=== PATIENT | male | born 1955 | race African-American/Black ===

== ENCOUNTER 2018-03-07 15:17 | Inpatient (IN) | payer MEDICAID ==
[~2018-03-07] VITALS: Ht 162.6 cm; Wt 55.3 kg
[2018-03-07 15:32] VITALS: BP 122/77
--- NOTE | 2018-03-07 15:44 | NUR ---
PATIENT AMBULATED WITH ASSISTANCE TO BED 6.
[2018-03-07] MEDS ORDERED: ONDANSETRON 4 MG/2 ML VIAL IVP ONE ×2 (16:00)
[2018-03-07] MEDS ORDERED: NACL 0.9% 1,000 ML IV ONE (16:00)
[2018-03-07] MEDS ORDERED: LOPERAMIDE 2 MG CAP PO ONE (16:00)
[2018-03-07] MEDS ORDERED: NACL 0.9% 1,000 ML IV SCH (16:00)
[2018-03-07] MEDS ORDERED: FAMOTIDINE 20 MG/2 ML VIAL IVP ONE (16:00)
--- NOTE | 2018-03-07 16:00 | NUR ---
PT PRESENT TO ED DUE TO ABD PAIN W/ N/V AND DIARHEA X TODAY; DENIES BLOOD IN THE STOOL; PER GRANDAUGHTER PT IS CONFUSED; UPON ASSESSMENT IN ER PT IS AAOX 3; PT MUMBLING WORDS NOT UNDERSTABLE AND PRAYING; SAFETY PRECAUTION INSTITUTED;ALL MONITORS IN PLACED;ERMD MADE AWARE OF PT'S CONDITION;GRANDAUGHTER AT BEDSIDE.
[2018-03-07 16:34] LABS: BASOPHILS % (AUTO) 0.3 % (0.0-2.0); EOSINOPHILS # (AUTO) 0.1 K/uL (0-0.4); EOSINOPHILS % (AUTO) 1.1 % (0.0-4.0); HEMATOCRIT 47.2 % (36-52); HEMOGLOBIN 15.8 g/dL (12.0-18.0); LYMPHOCYTES # (AUTO) 0.7 K/uL (2.0-11.5); LYMPHOCYTES % (AUTO) 7.9 % (20.5-51.1); MEAN CORPUSCULAR HEMOGLOBIN 34 pg (27-31); MEAN CORPUSCULAR HGB CONC 33 g/dL (33-37); MEAN CORPUSCULAR VOLUME 102.7 fL (80-94); MONOCYTES # (AUTO) 0.4 K/uL (0.8-1.0); MONOCYTES % (AUTO) 4.4 % (1.7-9.3); NEUTROPHILS # (AUTO) 7.6 K/uL (1.8-7.7); NEUTROPHILS % (AUTO) 86.3 % (42.2-75.2); PLATELET COUNT (AUTO) 206 K/uL (140-450); RED BLOOD CELL COUNT(AUTO) 4.59 MIL/uL (4.20-6.10); RED CELL DISTRIBUTION WIDTH 12.8 % (11.6-13.7); WHITE BLOOD COUNT (AUTO) 8.8 K/uL (4.8-10.8)
[2018-03-07 16:53] LABS: CARBON DIOXIDE 25.7 mmol/L (21-32); CHLORIDE 103 mmol/L (98-107); CREATININE 1.2 mg/dL (0.7-1.3); GFR ARICAN-AMERICAN 79 mL/min (>90); GLUCOSE 166 mg/dL (74-106); POTASSIUM 4.7 mmol/L (3.5-5.1); SODIUM SERUM 140 mmol/L (136-145); UREA NITROGEN, BLOOD 13 mg/dL (7-18)
[2018-03-07 16:59] LABS: ALBUMIN 4.4 g/dL (3.4-5.0); AMYLASE 98 U/L (25-115); ASPARTATE AMINOTRANSFERASE 35 U/L (15-37); LIPASE 178 U/L (73-393); TOTAL BILIRUBIN 2.7 mg/dL (0.0-1.0)
[2018-03-07 17:03] LABS: SALICYLATE < 2.8 mg/dL (2.8-20.0)
[2018-03-07 17:08] LABS: PROTHROMBIN TIME 8.7 secs (10.8-13.4)
[2018-03-07 17:53] LABS: APPEARANCE,URINE SLIGHTLY CLOUDY (CLEAR); COLOR,URINE YELLOW (YELLOW)
[2018-03-07 17:54] LABS: BILIRUBIN,URINE NEGATIVE (NEGATIVE); BLOOD, URINE NEGATIVE (NEGATIVE); UGLUCOSE NEGATIVE (NEGATIVE)
[2018-03-07 17:55] LABS: LEUKOCYTE ESTERASE ,URINE NEGATIVE (NEGATIVE); NITRITE, URINE NEGATIVE (NEGATIVE)
--- NOTE | 2018-03-07 18:03 | NUR ---
PT STATES "I'M FEELING BETTER" VERBALIZES DECREASE PAIN FROM 10/10 TO 6/10; NO FACIAL GRIMMACING/MOANING NOTED;
[2018-03-07] MEDS: NACL 0.9% 1,000 ML IV SCH (18:06)
[2018-03-07] MEDS ORDERED: LORazepam 2 MG/ML VIAL IM/IVP PRN (18:10)
[2018-03-07] MEDS ORDERED: ACETAMINOPHEN 325 MG TAB PO PRN (18:10)
[2018-03-07] MEDS ORDERED: ONDANSETRON 4 MG/2 ML VIAL IM/IVP PRN (18:10)
[2018-03-07] MEDS ORDERED: NITROGLYCERIN 0.4 MG TAB SL PRN (18:10)
[2018-03-07] MEDS ORDERED: DOCUSATE SODIUM 100 MG GELCAP PO PRN (18:10)
[2018-03-07] MEDS ORDERED: ZOLPIDEM 5 MG TAB PO PRN (18:10)
[2018-03-07 18:19] LABS: BARBITURATE, URINE NEGATIVE ng/ml (NEG <=200); BENZODIAZEPINE, URINE NEGATIVE ng/mL (NEG <=200); COCAINE, URINE NEGATIVE ng/mL (NEG <=300); OPIATE, URINE NEGATIVE ng/mL (NEG <=2000); PHENCYCLIDINE SCREEN,URINE NEGATIVE ng/mL (NEG <=25)
[2018-03-07] MEDS ORDERED: MECLIZINE 25 MG TAB PO PRN (18:20)
[2018-03-07] MEDS ORDERED: HEPARIN PER PHARMACY MC PRN (18:20)
[2018-03-07 18:23] LABS: CANNABINOID, URINE POSITIVE ng/mL (NEG <=50)
[2018-03-07] MEDS ORDERED: ALBUTEROL SULFATE/IPRATROPIU 3 ML SOL IH PRN (18:35)
[2018-03-07 18:50] VITALS: BP 126/73
--- NOTE | 2018-03-07 18:50 | NUR ---
RECEIVED PT TRANSFERRED FROM ER, REPORT OBTAINED AT BEDSIDE, PT IS AAOX2, CONFUSED, NUMBING WORDS, FOLLOW COMMANDS SOMETIMES. VSS, C/O PAIN TO ABDOMEN 10/10. NO S/S OF DISTRESS, CLEAR LUNG SOUND CHASE, ON RA. DENIES CHEST PAIN, SR ON ANIMATION ARTIST, SOFT ABDOMEN WITH ACTIVE BOWEL SOUNDS, CONTINENT WITH B&B'S, SLIGHT WEAKNESS TO BLE. SKIN IS INTACT, WARM AND DRY TO TOUCH, IV SITE TO LAC, 20GA, RUNNING NS AT 100ML/HR. ORIENTED PT TO ICU ROOM, PT CONFUSED, HOB ELEVATED, SAFETY MEASURE IN PLACE, CALL LIGHT WITHIN REACH, WILL CONTINUE TO MONITOR.
--- NOTE | 2018-03-07 18:55 | NUR ---
Patient will be admitted to care of DR JUAREZ. Admited to ICU. Will go to BED 5. Belongings list completed. Report to BENJA MOJICA.
[2018-03-07 18:59] LABS: CKMB RELATIVE INDEX 1.9 (0.0-2.5); CREATINE KINASE MB 9.4 ng/mL (0-3.6)
[2018-03-07] MEDS ORDERED: hePARIN / DEXT 5% PREMIX 250 ML IV SCH (19:10)
--- NOTE | 2018-03-07 19:28 | NUR ---
REPORT GIVEN TO BIOSTATISTICS MANAGER NURSE FOR CONTINUE OF CARE.
--- NOTE | 2018-03-07 19:30 | NUR ---
RECEIVED REPORT FROM DAY NURSE NO ACUTE DISTRESS NOTED.
--- NOTE | 2018-03-07 19:35 | NUR ---
PT AWAKE MUMBLING WORDS TO HIMSELF @ TIMES, PT ABLE TO COMMUNICATE, BUT HAS PERIODS OF CONFUSION. PT AOX1, ABLE TO MOVE ALL EXTREMITIES. DENIES NUMBNESS TINGLING. S1 S2 HEARD, +2 PULSES RADIAL/PEDAL, <3 SEC CAP REFILL, DENIES CP/SOB. ACTIVE BOWEL SOUNDS, LAST BM 03/07/18, PT C/O ABD PAIN THROUHGOUT ENTIRE ABDOMEN. PT VOIDING IN URINAL, CLEAR YELLOW URINE. PERIPHERAL IV TO L AC. SKIN INTACT. NO OTHER S/S OF ACUTE DISTRESS NOTED. WILL CONTINUE TO OBSERVE.
[2018-03-07 20:00] VITALS: BP 118/68
[2018-03-07 20:05] LABS: MAGNESIUM 1.9 mg/dL (1.8-2.4); PHOSPHORUS 1.7 mg/dL (2.5-4.9); THYROID STIMULATING HORMONE 1.25 uIU/mL (0.34-3.74)
[2018-03-07 20:09] LABS: ACETAMINOPHEN < 0.5 ug/ml (10-30)
[2018-03-07] MEDS: METOPROLOL 25 MG TAB PO SCH (20:26)
[2018-03-07] MEDS: ATORVASTATIN 20 MG TAB PO SCH (20:26)
[2018-03-07] MEDS: MORPHINE SULFATE 2 MG/ML SYR IVP PRN (20:26)
[2018-03-07] MEDS: metroNIDAZOLE 500 MG/NS PREMIX 100 ML IV SCH (20:27)
[2018-03-07 22:00] VITALS: BP 108/62
--- NOTE | 2018-03-07 22:10 | NUR ---
PT HAS EYES CLOSED, AROUSABLE. PT DENIES PAIN @ THIS TIME. 124/78 78 HR , 100 RA SPO2, RR 15. NO ACUTE DISTRESS WILL CONTINUE TO OBSERVE
[2018-03-07] MEDS: HYDROcodone/APAP 5/325 MG 1 TAB TAB PO PRN (22:19)
[2018-03-08] VITALS (9 sets, daily range): BP systolic 98–117; BP diastolic 58–73
[2018-03-08] MEDS ORDERED: ALUMINUM HYD/MAG/SIMETHICONE 30 ML UDC PO SCH (02:00)
--- NOTE | 2018-03-08 02:00 | NUR ---
PT GIVEN MoM FOR ABD DISCOMFORT, NO FEVER/CHILLS NOTED, VSS, WILL CONTINUE TO OBSERVE.
--- NOTE | 2018-03-08 04:06 | NUR ---
HEPARIN DRIP TITRATED DOWN AND RESTARTED PER HOSPITAL PROTOCOL NO ACUTE BLEEDING NOTED. VSS, NO ACUTE DISTRESS NOTED. WILL CONTINUE TO OBSERVE.
[2018-03-08] MEDS: metroNIDAZOLE 500 MG/NS PREMIX 100 ML IV SCH ×3 (04:33→21:02)
[2018-03-08] MEDS: NACL 0.9% 1,000 ML IV SCH ×2 (04:33→15:03)
[2018-03-08] MEDS: PANTOPRAZOLE 40 MG TABEC PO SCH (05:40)
[2018-03-08 05:58] LABS: BASOPHILS % (AUTO) 0.5 % (0.0-2.0); EOSINOPHILS % (AUTO) 0.5 % (0.0-4.0); HEMATOCRIT 40.5 % (36-52); HEMOGLOBIN 13.3 g/dL (12.0-18.0); LYMPHOCYTES # (AUTO) 0.5 K/uL (2.0-11.5); LYMPHOCYTES % (AUTO) 10.7 % (20.5-51.1); MEAN CORPUSCULAR HEMOGLOBIN 34 pg (27-31); MEAN CORPUSCULAR HGB CONC 33 g/dL (33-37); MONOCYTES # (AUTO) 0.2 K/uL (0.8-1.0); MONOCYTES % (AUTO) 5.2 % (1.7-9.3); NEUTROPHILS # (AUTO) 3.9 K/uL (1.8-7.7); NEUTROPHILS % (AUTO) 83.1 % (42.2-75.2); PLATELET COUNT (AUTO) 160 K/uL (140-450); RED BLOOD CELL COUNT(AUTO) 3.89 MIL/uL (4.20-6.10); RED CELL DISTRIBUTION WIDTH 13.3 % (11.6-13.7); WHITE BLOOD COUNT (AUTO) 4.7 K/uL (4.8-10.8)
[2018-03-08] MEDS ORDERED: ALBUTEROL SULFATE/IPRATROPIU 3 ML SOL IH SCH (06:00)
[2018-03-08 06:17] LABS: MAGNESIUM 1.7 mg/dL (1.8-2.4); PHOSPHORUS 3.4 mg/dL (2.5-4.9)
--- NOTE | 2018-03-08 07:30 | NUR ---
RECEIVED REPORT FROM NOTCH GRINDER RN. PT IS AWAKE, AAOX3, ABLE TO FOLLOW COMMANDS AND MAKE NEEDS KNOWN. SINUS BRADYCARDIA ON MONITOR, + S1 S2 HEARD. PT IS ON ROOM AIR, NO SOB OR RESPIRATORY NOTED. BREATHING EVEN AND UNLABORED. NO C/O CHEST PAIN. PERIPHERAL IVS G20 TO LEFT ANTECUBITAL AND G18 TO RIGHT FOREARM ASYMPTOMATIC, PATENT AND INTACT. PT IS RECEIVING IV FLUID NORMAL SALINE AT 100 ML/HR AND HEPARIN DRIP AT 630 U/HR. ABDOMEN SOFT, NONTENDER, WITH ACTIVE BOWEL SOUNDS. C/O MILD ABD PAIN. ABLE TO MOVE ALL EXTREMITIES, W/ PALPABLE PULSES. SKIN IS DRY AND WARM. PT IS AFEBRILE. BED IN LOWEST POSITION AND CALL LIGHT WITHIN REACH. WILL CONTINUE TO MONITOR.
[2018-03-08 07:34] LABS: ANION GAP 12.9 (8-16); CARBON DIOXIDE 26.1 mmol/L (21-32)
[2018-03-08 07:35] LABS: CREATININE 1.1 mg/dL (0.7-1.3)
--- NOTE | 2018-03-08 07:45 | NUR ---
DR. QIU AND RESIDENT GROUP IN TO SEE PT. WILL FOLLOW UP ON ORDERS.
--- NOTE | 2018-03-08 08:14 | NUR ---
BREAKFAST PROVIDED. PT ABLE TO EAT INDEPENDENTLY. NO S/SX OF DISTRESS OR DISCOMFORT AT THIS TIME.
[2018-03-08] MEDS: LEVOFLOXACIN 500 MG/D5W PREMIX 100 ML IV SCH (08:34)
[2018-03-08] MEDS: SODIUM PHOS / POTASSIUM PHOS 1 PKT PDR PO SCH (08:35)
[2018-03-08] MEDS: LACTOBACILLUS RHAMNOSUS GG 1 EACH CAP PO SCH (08:35)
[2018-03-08] MEDS: ASPIRIN 81 MG TAB.CHEW PO SCH (08:35)
[2018-03-08] MEDS: HYDROcodone/APAP 5/325 MG 1 TAB TAB PO PRN (08:35)
[2018-03-08] MEDS: METOPROLOL 25 MG TAB PO SCH ×2 (08:43→21:00)
[2018-03-08] MEDS: LISINOPRIL 5 MG TAB PO SCH (08:43)
--- NOTE | 2018-03-08 08:46 | NUR ---
MEDICATIONS ADMINISTERED ORDERED. PT TOLERATED WELL. BP WAS 99/52, HR 56, HELD BLOOD PRESSURE MEDICATIONS AND DR. ASHER MADE AWARE.
[2018-03-08] MEDS ORDERED: MAGNESIUM OXIDE 400 MG TAB PO SCH (09:00)
[2018-03-08] MEDS ORDERED: hePARIN / DEXT 5% PREMIX 250 ML IV SCH (10:15)
--- NOTE | 2018-03-08 10:48 | NUR ---
PT SEEN AND EXAMINED BY DR. MARISCAL. WILL FOLLOW UP WITH NEW ORDERS.
--- NOTE | 2018-03-08 10:59 | NUR ---
APTT 47.0. NO CHANGE FOR HEPARIN DRIP RATE PER PROTOCOL.
--- NOTE | 2018-03-08 11:12 | NUR ---
PATIENT HAS BEEN SCREENED AND CATEGORIZED MODERATE NUTRITION RISK. PATIENT WILL BE SEEN WITHIN 3-5 DAYS OF ADMISSION. 03/10/18 03/12/18 KIET SCHAEFER MBA, RD
[2018-03-08] MEDS ORDERED: PROBIOTIC SCREEN 1 EA MISC MC PRN (11:35)
--- NOTE | 2018-03-08 12:20 | NUR ---
PT HAD A SMALL AMOUNT OF BROWN LIQUID BOWEL MOVEMENT. NO C/O PAIN OR DISCOMFORT AT THIS TIME. VSS.
[2018-03-08] MEDS: ALBUTEROL SULFATE/IPRATROPIU 3 ML SOL IH SCH ×2 (13:09→19:42)
--- NOTE | 2018-03-08 14:30 | NUR ---
PT HAD ANOTHER AMOUNT OF BROWN LIQUID BOWEL MOVEMENT. NO C/O ABD PAIN. VSS. WILL CONTINUE TO MONITOR.
--- NOTE | 2018-03-08 15:55 | NUR ---
PT TRANSFERRED TO TELEMETRY ROOM 107A. REPORT GIVEN TO BENJA ARRINGTON AT BEDSIDE. PT IS IN STABLE CONDITION. NO ACUTE DISTRESS NOTED UPON TRANSFER.
--- NOTE | 2018-03-08 16:00 | NUR ---
PT ARRIVED VIA HOSPITAL BED FROM ICU. BEDSIDE REPORT RECEIVED FROM MONSE ICU NURSE. PT ABLE TO AMB FROM BED TO BED WITH STEADY GAIT. RIGHT FA IV INTACT WITH ONGOING HEPARIN DRIP @ 630 UNITS/HR. LEFT AC IV INTACT WITH ONGOING NS @ 100ML/HR. PT AAOx4, VERBALLY RESPONSIVE. PT ORIENTED TO ROOM & UNIT, VERBALIZED UNDERSTANDING. C/O 9/10 ABD PAIN, BOWEL SOUNDS ACTIVE ON ALL QUADS. WILL ADMINISTER MORPHINE.
[2018-03-08] MEDS: MORPHINE SULFATE 2 MG/ML SYR IVP PRN ×2 (16:29→21:05)
--- NOTE | 2018-03-08 16:30 | NUR ---
PTT RESULT 47.0, NOTED 2 CONSECUTIVE THERAPEUTIC LEVEL. CONTINUE WITH CURRENT HEPARIN DRIP @ 630 UNIT/HR PER PROTOCOL. REPEAT PTT DRAW ORDERED FOR 03/09/18 @ 1550.
--- NOTE | 2018-03-08 17:54 | NUR ---
PT IN HIGH FOWLERS IN BED, EATING DINNER. NO C/O DISCOMFORT AT THIS TIME. RESPIRATIONS EVEN & NONLABORED. RIGHT FOREARM IV INTACT WITH ONGOING HEPARIN DRIP @ 630 UNIT/HR. LEFT AC IV INTACT WITH ONGOING IVF NS @ 100ML/HR. CALL LIGHT WITHIN REACH.
--- NOTE | 2018-03-08 19:25 | NUR ---
BEDSIDE REPORT GIVEN TO PM NURSE JAYSON. PT LYING IN BED, AWAKE, VERBALLY RESPONSIVE, FLACC 0. CALL LIGHT WITHIN REACH.
--- NOTE | 2018-03-08 19:26 | NUR ---
RECEIVED REPORT FROM DAY SHIFT RN MURPHY FOR CONTINUITY OF CARE. PT IS A/OX4, ON ROOM AIR. PT AMBULATES WITH STEADY GAIT, AND SKIN IS PINK/WARM/DRY AND INTACT. PT IS ABLE TO MAKE NEEDS KNOWN, AND ABLE TO FOLLOW COMMANDS. LUNGS SOUNDS CLEAR, HR EVEN AND REGULAR. PT HAS 18G IV TO RIGHT FOREARM INFUSING HEPARIN DRIP, AND 2OG IV TO LEFT AC INFUSING NS, ASYMPTOMATIC AND INTACT. PT DENIES ANY PAIN AT THIS TIME. VITAL SIGNS STABLE. NO SIGNS OF DISTRESS NOTED. PT POSITIONED FOR COMFORT. BED RAILS UP X2, BED IN LOWEST POSITION. CALL LIGHT WITHIN REACH. WILL CONTINUE TO MONITOR.
[2018-03-08] MEDS: ATORVASTATIN 20 MG TAB PO SCH (21:03)
--- NOTE | 2018-03-08 21:07 | NUR ---
ADMINISTERED SCHEDULED MEDICATIONS EXCEPT LOPRESSOR BECAUSE OF DECREASED PULSE, 52, PT VERBALIZED UNDERSTANDING OF MEDICATIONS BEING GIVEN AND HELD. ALSO ADMINISTERED MORPHINE FOR 9/10 ABDOMINAL PAIN. PT TOLERATED WELL.
[2018-03-09] VITALS: BP 111/61
--- NOTE | 2018-03-09 | NUR ---
PT DENIES ANY PAIN AT THIS TIME. VITAL SIGNS STABLE. NO SIGNS OF DISTRESS NOTED. PT POSITIONED FOR COMFORT. BED RAILS UP X2, BED IN LOWEST POSITION. CALL LIGHT WITHIN REACH. WILL CONTINUE TO MONITOR.
[2018-03-09] MEDS: NACL 0.9% 1,000 ML IV SCH ×2 (01:55→12:11)
[2018-03-09] MEDS ORDERED: KETOROLAC 30 MG/ML VIAL IVP ONE (03:55)
[2018-03-09] MEDS ORDERED: ALUMINUM HYD/MAG/SIMETHICONE 30 ML UDC PO ONE (03:55)
[2018-03-09 04:00] VITALS: BP 108/65
--- NOTE | 2018-03-09 04:00 | NUR ---
PT C/O 10 ABDOMINAL PAIN. VITAL SIGNS STABLE EXCEPT FOR LOW PULSE, 46. SPOKE TO DR CARRASCO ABOUT PAIN AND HEART RATE BECAUSE PT HAS MORPHINE ORDERED FOR 01/14 PAIN. SAID SHE WOULD ORDER TORADOL AND MAALOX FOR PT. NO SIGNS OF DISTRESS NOTED. PT POSITIONED FOR COMFORT. BED RAILS UP X2, BED IN LOWEST POSITION. CALL LIGHT WITHIN REACH. WILL CONTINUE TO MONITOR.
[2018-03-09] MEDS: metroNIDAZOLE 500 MG/NS PREMIX 100 ML IV SCH ×3 (04:41→20:21)
--- NOTE | 2018-03-09 04:43 | NUR ---
ADMINISTERED SCHEDULED MEDICATIONS. PT VERBALIZED UNDERSTANDING OF MEDICATIONS BEING GIVEN. ALSO ADMINISTERED MAALOX AND TORADOL FOR 10/10 ABDOMINAL PAIN. PT TOLERATED WELL.
[2018-03-09] MEDS ORDERED: INFLUENZA VIRUS VACCINE QUAD 0.5 ML SYR IMVAC PRN (06:25)
[2018-03-09] MEDS: PANTOPRAZOLE 40 MG TABEC PO SCH (06:33)
--- NOTE | 2018-03-09 07:05 | NUR ---
ENDORSED PT TO DAY SHIFT RN VANESA FOR CONTINUITY OF CARE. PT IN STABLE CONDITION.
[2018-03-09] MEDS: ALBUTEROL SULFATE/IPRATROPIU 3 ML SOL IH SCH ×3 (07:18→19:20)
[2018-03-09 07:27] LABS: BASOPHILS % (AUTO) 0.5 % (0.0-2.0); EOSINOPHILS # (AUTO) 0.1 K/uL (0-0.4); EOSINOPHILS % (AUTO) 3.3 % (0.0-4.0); HEMATOCRIT 38.3 % (36-52); HEMOGLOBIN 12.8 g/dL (12.0-18.0); LYMPHOCYTES % (AUTO) 34.7 % (20.5-51.1); MEAN CORPUSCULAR HEMOGLOBIN 35 pg (27-31); MEAN CORPUSCULAR HGB CONC 33 g/dL (33-37); MEAN CORPUSCULAR VOLUME 103.3 fL (80-94); MONOCYTES # (AUTO) 0.3 K/uL (0.8-1.0); MONOCYTES % (AUTO) 11.7 % (1.7-9.3); NEUTROPHILS # (AUTO) 1.4 K/uL (1.8-7.7); NEUTROPHILS % (AUTO) 49.8 % (42.2-75.2); PLATELET COUNT (AUTO) 137 K/uL (140-450); RED BLOOD CELL COUNT(AUTO) 3.71 MIL/uL (4.20-6.10); RED CELL DISTRIBUTION WIDTH 13.2 % (11.6-13.7); WHITE BLOOD COUNT (AUTO) 2.8 K/uL (4.8-10.8)
--- NOTE | 2018-03-09 07:30 | NUR ---
PATIENT WAS AWAKE, ALERT. RESPIRATION EVEN, UNLABOR ON ROOM AIR. SKIN DRY AND WARM. IV PATENT AND INTACT. COMPLAINED OF SHARP CHEST PAIN AND ABDOMINAL PAIN 10/10, DIZZINESS, AND NAUSEA, WILL MEDICATE PER ORDER. VS IS STABLE. PLAN OF CARE WAS DISCUSSED WITH PATIENT. BED AT LOW POSITION, SIDE RAILS UP. CALL LIGHT WITHIN REACH. RT WAS AT BEDSIDE
[2018-03-09 07:55] LABS: ANION GAP 11.7 (8-16); CARBON DIOXIDE 25.1 mmol/L (21-32); POTASSIUM 3.8 mmol/L (3.5-5.1); TOTAL BILIRUBIN 1.4 mg/dL (0.0-1.0)
[2018-03-09 07:56] LABS: MAGNESIUM 1.9 mg/dL (1.8-2.4)
[2018-03-09 08:00] VITALS: BP 124/68
[2018-03-09] MEDS: SODIUM PHOS / POTASSIUM PHOS 1 PKT PDR PO SCH (08:19)
[2018-03-09] MEDS: LEVOFLOXACIN 500 MG/D5W PREMIX 100 ML IV SCH (08:19)
[2018-03-09] MEDS: MORPHINE SULFATE 2 MG/ML SYR IVP PRN ×3 (08:20→20:21)
[2018-03-09] MEDS: LISINOPRIL 5 MG TAB PO SCH (08:20)
[2018-03-09] MEDS: LACTOBACILLUS RHAMNOSUS GG 1 EACH CAP PO SCH (08:20)
[2018-03-09] MEDS: ASPIRIN 81 MG TAB.CHEW PO SCH (08:20)
--- NOTE | 2018-03-09 08:26 | NUR ---
DUE TO RECEIVING A FNS REFERRAL, PATIENT HAS BEEN CATEGORIZED HIGH RISK. PATIENT WILL BE SEEN WITHIN 1-2 DAYS FROM RECEIVING REFERRAL. 03/09/[address]
--- NOTE | 2018-03-09 08:30 | NUR ---
DR. PRARA WAS PAGED FOR CRITICAL RESULT TROPONIN , WILL CONTINUE TO FOLLOW UP
[2018-03-09] MEDS: METOPROLOL 25 MG TAB PO SCH (09:00)
--- NOTE | 2018-03-09 09:56 | NUR ---
DR. TAVERA WAS MADE AWARE OF TROPONIN LEVEL 0.337, AND PATIENT HAS BEEN SINUS REGLA ON MONITOR WITH COMPLAINT OF DIZZINESS. PHYSICIAN WILL SEE PATIENT
--- NOTE | 2018-03-09 10:00 | NUR ---
PATIENT WAS AWAKE, ALERT. RESPIRATION EVEN, UNLABOR ON ROOM AIR. DENIED CP. COMPLAINED OF DIZZINESS AND ABDOMINAL PAIN 09/14. DR. TAVERA WAS AT BEDSIDE.
[2018-03-09] MEDS ORDERED: KETOROLAC 30 MG/ML VIAL IVP SCH (10:10)
[2018-03-09 12:00] VITALS: BP 126/67
--- NOTE | 2018-03-09 12:00 | NUR ---
PATIENT WAS AWAKE, ALERT. RESPIRATION EVEN, UNLABOR ON ROOM AIR. VS IS STABLE. DENIED SOB, CP AT THIS TIME. NO DISTRESS NOTED. BREWERY WORKER IS AT BEDSIDE. CALL LIGHT WITHIN REACH
--- NOTE | 2018-03-09 14:10 | NUR ---
PATIENT WAS AWAKE, ALERT. RESPIRATION EVEN, UNLABOR ON ROOM AIR. COMPLAINED OF ABDOMINAL PAIN 9/, WILL MEDICATE PER ORDER.
--- NOTE | 2018-03-09 14:13 | NUR ---
03/09/18 RD INITIAL ASSESSMENT COMPLETED PLEASE REFER TO NUTRITION ASSESSMENT UNDER CARE ACTIVITY FOR ESTIMATED NUTRITIONAL NEEDS. 1. CONTINUE CLEAR LIQUID DIET TOLERATED 2. ADVANCE TO FULL LIQUID DIET ONCE APPLICABLE 3. RECOMMEND ENSURE CLEAR TID 3. RD TO FOLLOW-UP 3-5 DAYS, MODERATE RISK DON HAILE, RD
[2018-03-09 16:00] VITALS: BP 139/80
--- NOTE | 2018-03-09 16:00 | NUR ---
PATIENT WAS AWAKE, ALERT. RESPIRATION EVEN, UNLABOR ON ROOM AIR. DENIED CP, N/V AT, STATED ABDOMINAL PAIN IS REDUCING, AND IS TOLERABLE. IV PATENT AND INTACT. NO DISTRESS NOTED AT THIS TIME. CALL LIGHT WITHIN REACH
--- NOTE | 2018-03-09 18:22 | NUR ---
PATIENT WAS AWAKE, ALERT. RESPIRATION EVEN, UNLABOR ON ROOM AIR. PATIENT WAS ASSISTED TO THE BATHROOM, AMBULATORY WITH STEADY GAIT. NO DISTRESS NOTED. IV PATENT AND INTACT.
--- NOTE | 2018-03-09 19:18 | NUR ---
ENDORSEMENT GIVEN TO BONE CHAR OPERATOR NURSE. PATIENT IS STABLE AT THIS TIME
--- NOTE | 2018-03-09 19:18 | NUR ---
RECEIVED REPORT FROM DAY SHIFT NURSE, REJI, AT PT BEDSIDE. PT IN STABLE CONDITION. PT IS AAOX4, RESTING COMFORTABLY IN BED. PT IS ON RA WITH RESPIRATIONS EVEN AND UNLABORED. IV ACCESS IN L AC 20G, SALINE LOCKED AND R FA 18G WITH IVF RUNNING PER MD ORDERS. IVS ARE PATENT AND INTACT. PT SKIN IS INTACT. NO C/O PAIN AT THIS TIME. BED IS LOCKED, LOW POSITION WITH SIDE RAILS UP X2. CALL LIGHT IS WITHIN REACH. BOARD UPDATED. WILL CONTINUE TO MONITOR PT.
[2018-03-09 20:00] VITALS: BP 111/60
[2018-03-09] MEDS: ATORVASTATIN 20 MG TAB PO SCH (20:21)
--- NOTE | 2018-03-09 20:21 | NUR ---
ADMINISTERED SCHEDULED MEDICATIONS. PT C/O PAIN, MORPHINE GIVEN. PT TOLERATED WELL. NO S/SX OF DISTRESS. WILL CONTINUE TO MONITOR.
--- NOTE | 2018-03-09 22:34 | NUR ---
PT RESTING COMFORTABLY IN BED. NO S/SX OF DISTRESS. WILL CONTINUE TO MONITOR.
[2018-03-10] VITALS: BP 113/72
--- NOTE | 2018-03-10 00:55 | NUR ---
PT ASLEEP IN BED. NO S/SX OF DISTRESS. WILL CONTINUE TO MONITOR.
--- NOTE | 2018-03-10 01:17 | NUR ---
CREDIT UNION MANAGER AT BEDSIDE DRAWING LABS.
--- NOTE | 2018-03-10 03:30 | NUR ---
PT ASLEEP IN BED WITH NO S/SX OF DISTRESS. WILL CONTINUE TO MONITOR.
[2018-03-10 04:00] VITALS: BP 112/62
--- NOTE | 2018-03-10 04:50 | NUR ---
STOOL SAMPLE COLLECTED AND SENT TO LAB.
[2018-03-10] MEDS: metroNIDAZOLE 500 MG/NS PREMIX 100 ML IV SCH ×2 (05:36→12:32)
[2018-03-10] MEDS: NACL 0.9% 1,000 ML IV SCH ×2 (05:36→22:13)
[2018-03-10] MEDS: PANTOPRAZOLE 40 MG TABEC PO SCH (05:37)
--- NOTE | 2018-03-10 05:37 | NUR ---
ADMINISTERED SCHEDULED MEDICATIONS AND NEW BAG OF IVF STARTED. ALL PT NEEDS ARE MET AT THIS TIME. WILL CONTINUE TO MONITOR.
[2018-03-10 05:58] LABS: BASOPHILS % (AUTO) 0.5 % (0.0-2.0); EOSINOPHILS # (AUTO) 0.1 K/uL (0-0.4); HEMATOCRIT 36.2 % (36-52); LYMPHOCYTES % (AUTO) 35.8 % (20.5-51.1); MEAN CORPUSCULAR HEMOGLOBIN 34 pg (27-31); MEAN CORPUSCULAR HGB CONC 33 g/dL (33-37); MEAN CORPUSCULAR VOLUME 102.8 fL (80-94); MONOCYTES # (AUTO) 0.3 K/uL (0.8-1.0); MONOCYTES % (AUTO) 12.3 % (1.7-9.3); NEUTROPHILS # (AUTO) 1.3 K/uL (1.8-7.7); NEUTROPHILS % (AUTO) 47.4 % (42.2-75.2); PLATELET COUNT (AUTO) 147 K/uL (140-450); RED BLOOD CELL COUNT(AUTO) 3.52 MIL/uL (4.20-6.10); RED CELL DISTRIBUTION WIDTH 12.8 % (11.6-13.7); WHITE BLOOD COUNT (AUTO) 2.7 K/uL (4.8-10.8)
[2018-03-10] MEDS: ALBUTEROL SULFATE/IPRATROPIU 3 ML SOL IH SCH ×3 (06:26→18:38)
--- NOTE | 2018-03-10 06:26 | NUR ---
PT SLEEPING WITH NO SIGNS OF DISTRESS NOTED AT THIS TIME NO HHN GIVEN
[2018-03-10 06:40] LABS: CARBON DIOXIDE 24.6 mmol/L (21-32); CREATININE 0.9 mg/dL (0.7-1.3); MAGNESIUM 1.8 mg/dL (1.8-2.4); PHOSPHORUS 2.8 mg/dL (2.5-4.9); POTASSIUM 3.6 mmol/L (3.5-5.1)
--- NOTE | 2018-03-10 07:10 | NUR ---
ENDORSED PT TO DAY SHIFT NURSE FOR CONTINUITY OF CARE. PT IN STABLE CONDITION.
--- NOTE | 2018-03-10 07:40 | NUR ---
PATIENT WAS AWAKE, ALERT. RESPIRATION EVEN, UNLABOR ON ROOM AIR. SKIN DRY AND WARM. IV PATENT AND INTACT. DENIED PAIN, N/V, DIZZINESS AT THIS TIME. PATIENT WAS ENCOURAGED TO REPOSITION SLOWLY. PLAN OF CARE WAS DISCUSSED WITH PATIENT. BED AT LOW POSITION, SIDE RAILS UP. CALL LIGHT WITHIN REACH
[2018-03-10 08:00] VITALS: BP 113/73
[2018-03-10] MEDS: ASPIRIN 81 MG TAB.CHEW PO SCH (08:32)
[2018-03-10] MEDS: SODIUM PHOS / POTASSIUM PHOS 1 PKT PDR PO SCH (08:32)
[2018-03-10] MEDS: LISINOPRIL 5 MG TAB PO SCH (08:32)
[2018-03-10] MEDS: LACTOBACILLUS RHAMNOSUS GG 1 EACH CAP PO SCH (08:32)
[2018-03-10] MEDS: LEVOFLOXACIN 500 MG/D5W PREMIX 100 ML IV SCH (08:32)
--- NOTE | 2018-03-10 10:15 | NUR ---
PATIENT WAS AWAKE, ALERT. RESPIRATION EVEN, UNLABOR ON ROOM AIR. NO DISTRESS NOTED AT THIS TIME
--- NOTE | 2018-03-10 11:53 | NUR ---
PATIENT WAS AWAKE, ALERT. RESPIRATION EVEN, UNLABOR ON ROOM AIR. DENIED PAIN, SOB AT THIS TIME. IV PATENT AND INTACT. PATIENT AMBULATED TO THE BATHROOM, STEADY GAIT. NO DISTRESS NOTED. CALL LIGHT WITHIN REACH
[2018-03-10 12:00] VITALS: BP 128/72
--- NOTE | 2018-03-10 13:55 | NUR ---
PATIENT WAS SLEEPING COMFORTABLY. RESPIRATION EVEN, UNLABOR ON ROOM AIR. NO DISTRESS NOTED AT THIS TIME
[2018-03-10 16:00] VITALS: BP 121/65
--- NOTE | 2018-03-10 16:10 | NUR ---
PATIENT WAS AWAKE, ALERT. RESPIRATION EVEN, UNLABOR ON ROOM AIR. DENIED PAIN, N/V, STATED HE TOLERATED REGULAR DIET WELL. IV PATENT AND INTACT. NO DISTRESS NOTED AT THIS TIME. CALL LIGHT WITHIN REACH
--- NOTE | 2018-03-10 17:54 | NUR ---
PATIENT AWAKE, ALERT, EATING DINNER COMFORTABLY. RESPIRATION EVEN, UNLABOR ON ROOM AIR. IV PATENT AND INTACT, FLUSHING WELL. NO DISTRESS NOTED. DR. LAWLER WAS AT BEDSIDE. CALL LIGHT WITHIN REACH.
[2018-03-10 18:33] LABS: BASOPHILS % (AUTO) 0.4 % (0.0-2.0); EOSINOPHILS # (AUTO) 0.1 K/uL (0-0.4); EOSINOPHILS % (AUTO) 2.9 % (0.0-4.0); HEMATOCRIT 42.6 % (36-52); LYMPHOCYTES # (AUTO) 1.3 K/uL (2.0-11.5); LYMPHOCYTES % (AUTO) 35.1 % (20.5-51.1); MEAN CORPUSCULAR HEMOGLOBIN 34 pg (27-31); MEAN CORPUSCULAR HGB CONC 33 g/dL (33-37); MEAN CORPUSCULAR VOLUME 103.4 fL (80-94); MONOCYTES # (AUTO) 0.3 K/uL (0.8-1.0); MONOCYTES % (AUTO) 9.4 % (1.7-9.3); NEUTROPHILS % (AUTO) 52.2 % (42.2-75.2); PLATELET COUNT (AUTO) 172 K/uL (140-450); RED BLOOD CELL COUNT(AUTO) 4.12 MIL/uL (4.20-6.10); RED CELL DISTRIBUTION WIDTH 13.2 % (11.6-13.7); WHITE BLOOD COUNT (AUTO) 3.7 K/uL (4.8-10.8)
--- NOTE | 2018-03-10 19:22 | NUR ---
RECEIVED REPORT FROM DAY SHIFT NURSE, REJI, AT PT BEDSIDE. PT IN STABLE CONDITION. FAMILY IS AT BEDSIDE. PT IS AAOX4, RESTING COMFORTABLY IN BED. PT IS ON RA WITH RESPIRATIONS EVEN AND UNLABORED. IV ACCESS IN L AC 20G, SALINE LOCKED AND R FA 18G WITH IVF RUNNING PER MD ORDERS. IVS ARE PATENT AND INTACT. PT SKIN IS INTACT. NO C/O PAIN AT THIS TIME. BED IS LOCKED, LOW POSITION WITH SIDE RAILS UP X2. CALL LIGHT IS WITHIN REACH. BOARD UPDATED. WILL CONTINUE TO MONITOR PT.
--- NOTE | 2018-03-10 19:22 | NUR ---
ENDORSEMENT GIVEN TO STRATEGY MANAGER NURSE. PATIENT IS STABLE AT THIS TIME
[2018-03-10 20:00] VITALS: BP 119/69
[2018-03-10] MEDS: ATORVASTATIN 20 MG TAB PO SCH (21:14)
--- NOTE | 2018-03-10 21:14 | NUR ---
ADMINISTERED SCHEDULED MEDICATION. PT C/O HEADACHE. TYLENOL GIVEN. PT TOLERATED WELL. NO S/SX OF DISTRESS. WILL CONTINUE TO MONITOR.
--- NOTE | 2018-03-10 23:58 | NUR ---
PT RESTING COMFORTABLY IN BED. NO S/SX OF DISTRESS. WILL CONTINUE TO MONITOR PT.
[2018-03-11] VITALS: BP 102/72
--- NOTE | 2018-03-11 01:17 | NUR ---
PT IS ASLEEP I BED. NO S/SX OF DISTRESS. WILL CONTINUE TO MONITOR.
--- NOTE | 2018-03-11 03:07 | NUR ---
PT UP AT BEDSIDE USING URINAL. NO SIGNS OR SYMPTOMS OF DISTRESS. WILL CONTINUE TO MONITOR.
[2018-03-11] MEDS ORDERED: INFLUENZA VIRUS VACCINE QUAD 0.5 ML SYR IMVAC PRN (03:20)
[2018-03-11 04:00] VITALS: BP 111/64
--- NOTE | 2018-03-11 05:05 | NUR ---
PT IS ASLEEP IN BED. NO S/SX OF DISTRESS. WILL CONTINUE TO MONITOR.
[2018-03-11] MEDS: PANTOPRAZOLE 40 MG TABEC PO SCH (06:09)
--- NOTE | 2018-03-11 06:09 | NUR ---
ADMINISTERED SCHEDULED MEDICATION. PT TOLERATED WELL, RESTING COMFORTABLY IN BED. NO S/SX OF DISTRESS. WILL CONTINUE TO MONITOR.
[2018-03-11 06:41] LABS: BASOPHILS % (AUTO) 0.9 % (0.0-2.0); EOSINOPHILS # (AUTO) 0.2 K/uL (0-0.4); EOSINOPHILS % (AUTO) 4.6 % (0.0-4.0); HEMATOCRIT 37.8 % (36-52); HEMOGLOBIN 12.5 g/dL (12.0-18.0); LYMPHOCYTES # (AUTO) 1.2 K/uL (2.0-11.5); LYMPHOCYTES % (AUTO) 36.1 % (20.5-51.1); MEAN CORPUSCULAR HEMOGLOBIN 34 pg (27-31); MEAN CORPUSCULAR HGB CONC 33 g/dL (33-37); MONOCYTES # (AUTO) 0.4 K/uL (0.8-1.0); MONOCYTES % (AUTO) 10.6 % (1.7-9.3); NEUTROPHILS # (AUTO) 1.6 K/uL (1.8-7.7); NEUTROPHILS % (AUTO) 47.8 % (42.2-75.2); PLATELET COUNT (AUTO) 143 K/uL (140-450); RED BLOOD CELL COUNT(AUTO) 3.67 MIL/uL (4.20-6.10); RED CELL DISTRIBUTION WIDTH 13.1 % (11.6-13.7); WHITE BLOOD COUNT (AUTO) 3.3 K/uL (4.8-10.8)
[2018-03-11] MEDS: ALBUTEROL SULFATE/IPRATROPIU 3 ML SOL IH SCH ×2 (06:44→13:20)
[2018-03-11 07:06] LABS: ANION GAP 13.6 (8-16); CARBON DIOXIDE 25.4 mmol/L (21-32); CREATININE 0.9 mg/dL (0.7-1.3)
--- NOTE | 2018-03-11 07:07 | NUR ---
ENDORSED PT TO DAY SHIFT NURSE FOR CONTINUITY OF CARE. PT IN STABLE CONDITION.
--- NOTE | 2018-03-11 07:08 | NUR ---
RECEIVED REPORT FROM ASSOCIATE PROFESSOR OF MEDIA ARTS NURSE. PATIENT LYING DOWN IN BED SLEEPING, AROUSABLE BY VOICE. NO DISTRESS NOTED. DENIES ANY PAIN. AAOX4, CALM, COOPERATIVE, SKIN COLOR APPROPRIATE TO ETHNICITY, WARM TO TOUCH. SKIN INTACT. IV SITE INTACT, PATENT, AND INFUSING IVF PER MD ORDERS. LUNGS CTA ON ALL LOBES. REVIEWED PLAN OF CARE WITH PATIENT. PATIENT VERBALIZED UNDERSTANDING. SAFETY MEASURES IN PLACE, CALL LIGHT WITHIN REACH. WILL CONTINUE TO MONITOR.
[2018-03-11 08:00] VITALS: BP 111/69
[2018-03-11] MEDS: SODIUM PHOS / POTASSIUM PHOS 1 PKT PDR PO SCH (09:02)
[2018-03-11] MEDS: LACTOBACILLUS RHAMNOSUS GG 1 EACH CAP PO SCH (09:02)
[2018-03-11] MEDS: LISINOPRIL 5 MG TAB PO SCH (09:03)
[2018-03-11] MEDS: ASPIRIN 81 MG TAB.CHEW PO SCH (09:03)
--- NOTE | 2018-03-11 09:08 | NUR ---
PATIENT SITTING IN BED COMFORTABLY. NO DISTRESS NOTED. DENIES ANY PAIN. SCHEDULED MEDICATIONS DUE GIVEN. WILL CONTINUE TO MONITOR.
--- NOTE | 2018-03-11 11:45 | NUR ---
PATIENT SITTING IN BED WITH LUNCH TRAY IN FRONT. NO DISTRESS NOTED. DENIES ANY PAIN. WILL CONTINUE TO MONITOR.
[2018-03-11] MEDS ORDERED: PANT40EC28 PO (12:06)
[2018-03-11] MEDS ORDERED: LISI-424 PO (12:06)
[2018-03-11] MEDS ORDERED: ASPI81CT95 PO (12:06)
[2018-03-11] MEDS ORDERED: ATOR20TA40 PO (12:06)
[2018-03-11] MEDS: NACL 0.9% 1,000 ML IV SCH (12:13)
--- NOTE | 2018-03-11 13:30 | NUR ---
PATIENT SITTING IN BED RECEIVING A BREATHING TREATMENT. NO DISTRESS NOTED. WILL CONTINUE TO MONITOR.
[2018-03-11] MEDS ORDERED: PNEUMOCOCCAL VACCINE 23 MCG/0.5 ML VIAL IMVAC SCH (13:50)
--- NOTE | 2018-03-11 15:00 | NUR ---
DISCHARGE INSTRUCTIONS PROVIDED TO PATIENT IN PREFERRED LANGUAGE OF [place], FOLLOW-UP VISITS WITH PCP AND CASTING OPERATOR, NEW/CHANGED MEDICATION REGIMEN, AND DIET REGIMEN. ANSWERED ALL OF PATIENT'S QUESTIONS REGARDING DISCHARGE. PATIENT VERBALIZED COMPLETE UNDERSTANDING. IV SITE REMOVED WITH MINIMAL BLOOD AND LUMEN COMPLETELY INTACT. ID BANDS REMOVED. AWAITING FOR FAMILY MEMBERS TO ARRIVE TO TAKE PATIENT HOME.
--- NOTE | 2018-03-11 15:30 | NUR ---
PATIENT'S FAMILY MEMBER ON UNIT TO TAKE PATIENT HOME. ALL BELONGINGS WITH PATIENT. ESCORTED PATIENT DOWN TO LOBBY VIA STEADY AMBULATION. PATIENT DISCHARGED AT THIS TIME TO HOME IN PRIVATE VEHICLE IN STABLE CONDITION.
== END 2018-03-11 15:30 | disposition home or self-care (01) | DRG 190 ==
LOC: MED 15:17 → MIC 18:09 → MTU 03-08 15:50
PROVIDERS: ADMIT General Practice; ATTEND General Practice
PROC: 3E0234Z Introduction of Serum, Toxoid and Vaccine into Muscle, Percutaneous Approach (ICD-10-PCS; principal; 2018-03-11)
DX: I21.A1 Myocardial infarction type 2 (principal); I27.21 Secondary pulmonary arterial hypertension; E44.0 Moderate protein-calorie malnutrition; D70.9 Neutropenia, unspecified; E83.39 Other disorders of phosphorus metabolism; E83.42 Hypomagnesemia; G90.8 Other disorders of autonomic nervous system; I42.7 Cardiomyopathy due to drug and external agent; E86.0 Dehydration; A09 Infectious gastroenteritis and colitis, unspecified; E78.5 Hyperlipidemia, unspecified; F12.10 Cannabis abuse, uncomplicated; J45.909 Unspecified asthma, uncomplicated; N20.0 Calculus of kidney; Z68.20 Body mass index [BMI] 20.0-20.9, adult; Z86.73 Personal history of transient ischemic attack (TIA), and cerebral infarction without residual deficits; Z23 Encounter for immunization
CPT/HCPCS: 36415; 36600; 70450; 71045; 80048; 80053; 80305; 81003; 82140; 82150; 82272; 82550; 82553; 83036; 83690; 83735; 84100; 84134; 84443; 84484; 85025; 85610; 85730; 87040; 87045; 87081; 87086; 87804; 89055; 90732; 93005; 93880; 93970; 94640; 96361; 96374; 96375; 97110; 97116; 97530; 99285; G0480; G0482; J1644; J1885; J1956; J2270; J2405; J3490; J7030; J7620; Q0092

== ENCOUNTER 2018-06-09 08:15 | Emergency (ER) | payer MEDICAID ==
[~2018-06-09] VITALS: Ht 152.4 cm; Wt 59.0 kg
[2018-06-09 08:15] VITALS: BP 122/77
[~2018-06-09 08:15] MED LIST: ASPI81CT95 PO; ATOR20TA40 PO; LISI-424 PO; PANT40EC28 PO
--- NOTE | 2018-06-09 08:21 | NUR ---
PATIENT AMBULATED TO BED 2 AT THIS TIME.
--- NOTE | 2018-06-09 08:30 | NUR ---
Assumed patient care, nursing assessment completed. Seen and evaluated by Dr Werner, MSE completed.
[2018-06-09] MEDS ORDERED: IBUPROFEN 400 MG TAB PO ONE (08:35)
--- NOTE | 2018-06-09 09:06 | NUR ---
X-rays completed, medicated per order.
--- NOTE | 2018-06-09 09:18 | NUR ---
Dr Werner at bedside updating patient accordingly.
--- NOTE | 2018-06-09 09:32 | NUR ---
Left thumb spica splint applied, STICK FEEDER intact.
--- NOTE | 2018-06-09 09:36 | NUR ---
Disposition and medical decision making, dc home with instructions and prescriptions. All instructions understood by patient well, VS WNL, pain tolerable. DC home ambulatory.
--- NOTE | 2018-06-09 09:50 | NUR ---
Patient supplied with CD copy of X-ray.
[2018-06-09 09:51] VITALS: BP 135/70
== END 2018-06-09 09:50 | disposition home or self-care (01) ==
LOC: MED 08:15
DX: S63.502A Unspecified sprain of left wrist, initial encounter (principal); S80.01XA Contusion of right knee, initial encounter; J45.909 Unspecified asthma, uncomplicated; Z79.82 Long term (current) use of aspirin; Z79.899 Other long term (current) drug therapy; W19.XXXA Unspecified fall, initial encounter; Y93.89 Activity, other specified; Y92.69 Other specified industrial and construction area as the place of occurrence of the external cause; Y99.0 Civilian activity done for income or pay
CPT/HCPCS: 29125; 73110; 73562; 99283; Q0092

== ENCOUNTER 2018-07-26 17:58 | Emergency (ER) | payer MEDICAID ==
[~2018-07-26] VITALS: Ht 157.5 cm; Wt 60.8 kg
[2018-07-26 18:01] VITALS: BP 122/76
--- NOTE | 2018-07-26 18:34 | NUR ---
62 Y MALE BIB SELF C/O MECHANICAL FALL 3 DAYS AGO AT WORK WHILE CARRYING A BOX INJURED RIGHT KNEE AND LEFT HAND---NO DISCOLORATION, NO DEFORMITY, +ROM, PALPABLED PULSES, NO SWELLING NOTED ---PT C/O PAIN 10/10 ACHING. PT IS AMBULATORY WITH STEADY GAIT. AA0X4. VSS AT THIS TIME. BED IS DOWN, LOCKED, BED RAIL X 1, ERMD NOTIFIED. HX--ASTHMA RX---ALBUTEROL
--- NOTE | 2018-07-26 18:50 | NUR ---
XRAY AT BEDSIDE
--- NOTE | 2018-07-26 19:18 | NUR ---
REPORT GIVEN TO JOÃO YOUSIF
--- NOTE | 2018-07-26 19:30 | NUR ---
Dr. Chung evaluating patient at bedside.
[2018-07-26] MEDS ORDERED: KETOROLAC 60 MG/2 ML VIAL IM ONE (19:35)
[2018-07-26 19:58] VITALS: BP 128/77
--- NOTE | 2018-07-26 19:58 | NUR ---
DISCHARGE PAPERS GIVEN. 10 PAIN AND TOLERABLE. CMS INTACT BILAT UPPER EXTREMITIES. WRIST SPLINT IN PLACE. VSS. RX OF MOTRIN AND NORCO GIVEN. SIDE EFFECTS EXPLAINED. INSTRUCTED TO F/U WITH PCP AND WHEN TO RETURN TO ED. PT VERBALIZED UNDERSTANDING OF DC INSTRUCTIONS. ALL QUESTIONS ANSWERED.
== END 2018-07-26 19:58 | disposition home or self-care (01) ==
LOC: MED 17:58
DX: M25.532 Pain in left wrist (principal); M25.561 Pain in right knee; J45.909 Unspecified asthma, uncomplicated; Z79.82 Long term (current) use of aspirin; Z79.899 Other long term (current) drug therapy
CPT/HCPCS: 29125; 73130; 73562; 96372; 99283; J1885

== ENCOUNTER 2018-08-26 07:42 | Emergency (ER) | payer MEDICAID ==
[~2018-08-26] VITALS: Ht 154.9 cm; Wt 59.1 kg
[2018-08-26 07:50] VITALS: BP 122/78
--- NOTE | 2018-08-26 07:57 | NUR ---
PATIENT AMBULATED TO BED 9.
--- NOTE | 2018-08-26 08:00 | NUR ---
62 Y MALE BIB SELF C/O CHASE THIGHS PAIN RADIATING TO CHASE LOWER LEGS X 1 WEEK. DENIES TRAUMA. +CMS. PAIN 10/10 SEVERE, ACHING. AA0X4. VSS AT THIS TIME. BED IS DOWN, LOCKED, BED RAIL X 1, ERMD TO SEE PT. MED HX:ASTHMA, APPENDECTOMY
--- NOTE | 2018-08-26 08:10 | NUR ---
dr wilkes at bedside for pt evaluation
[2018-08-26] MEDS ORDERED: KETOROLAC 60 MG/2 ML VIAL IM ONE (08:15)
[2018-08-26] MEDS ORDERED: DEXAMETHASONE 10 MG/ML VIAL IM ONE (08:15)
--- NOTE | 2018-08-26 08:41 | NUR ---
pt pain 4/10 at this time
--- NOTE | 2018-08-26 09:00 | NUR ---
dr wilkes at bedside for pt evaluation
[2018-08-26 09:25] VITALS: BP 126/77
--- NOTE | 2018-08-26 09:25 | NUR ---
Patient discharged with v/s stable. Written and verbal after care instructions given and explained. Patient alert, oriented and verbalized understanding of instructions. Ambulatory with steady gait. All questions addressed prior to discharge. ID band removed. Patient advised to follow up with PMD. Rx of tramadol hydrochloride given. Patient educated on indication of medication including possible reaction and side effects. Opportunity to ask questions provided and answered. PT GIVEN EXCUSE FROM WORK FOR TODAY.
== END 2018-08-26 09:25 | disposition home or self-care (01) ==
LOC: MED 07:42
DX: M54.16 Radiculopathy, lumbar region (principal); J45.909 Unspecified asthma, uncomplicated; I10 Essential (primary) hypertension; Z79.82 Long term (current) use of aspirin; Z79.899 Other long term (current) drug therapy
CPT/HCPCS: 96372; 99283; J1100; J1885

== ENCOUNTER 2018-09-18 19:39 | Emergency (ER) | payer MEDICAID ==
[~2018-09-18] VITALS: Ht 152.4 cm; Wt 59.0 kg
[2018-09-18 19:40] VITALS: BP 125/67
--- NOTE | 2018-09-18 19:43 | NUR ---
TO LOBBY A/W BED, AND XRAY , AMBULATORY
--- NOTE | 2018-09-18 20:55 | NUR ---
PT AMBULATED TO ER BED 01
--- NOTE | 2018-09-18 21:15 | NUR ---
63 YO M BIB SELF PRESENTS TO ED C/O 01/14 BILATERAL HAND PAIN S/P FALL. PT STATES HE FELL AT WORK AND CAUGHT HIMSELF BY LANDING ON BOTH HIS HANDS. RIGHT HAND BRUSING AND MINOR SWELLING NOTED. LIMITED ROM. LEFT HAND HAS MILD WEAKNESS WITH ROM IN TACT. RADIAL PULSES STRONG, EQUAL BILATERALLY. CAP REFILL BRISK, LESS THAN 3 SECONDS. -- PT AWAKE, ALERT, CALM, COOPERATIVE. ANSWERING QUESTIONS APPROPRIATELY. BEHAVIOR AGE APPROPRIATE. -- SKIN PINK, WARM, DRY. BREATHING EVEN, UNLABORED. -- DENIES LOC, HEAD TRAUMA, BLEEDING. PMH-- ASTHMA
--- NOTE | 2018-09-18 21:54 | NUR ---
DR. DUTTON BEDSIDE EVALUATING PT
[2018-09-18 22:14] VITALS: BP 128/71
== END 2018-09-18 22:14 | disposition home or self-care (01) ==
LOC: MED 19:39
DX: S63.92XA Sprain of unspecified part of left wrist and hand, initial encounter (principal); J45.909 Unspecified asthma, uncomplicated; Z79.82 Long term (current) use of aspirin; Z79.899 Other long term (current) drug therapy; W19.XXXA Unspecified fall, initial encounter; Y93.89 Activity, other specified; Y92.89 Other specified places as the place of occurrence of the external cause; Y99.0 Civilian activity done for income or pay
CPT/HCPCS: 73130; 99283; Q0092

== ENCOUNTER 2018-10-05 16:08 | Emergency (ER) | payer MEDICAID ==
[~2018-10-05] VITALS: Ht 157.5 cm; Wt 57.8 kg
[2018-10-05 16:25] VITALS: BP 130/76
--- NOTE | 2018-10-05 16:40 | NUR ---
PT BIB SELF FOR BL WRIST PAIN THAT IS WORSE WHEN HE IS GRABBING OBJECTS. PT STATES HE WAS SEEN HERE IN ER AT TIME OF INCIDENT AND SENT HOME W/ IBUPROFEN. PT C/O CONTINUED PAIN W/O RELIEF FROM RX. +CMS, TENDERNESS TO WRISTS ON PALPATION.
--- NOTE | 2018-10-05 17:09 | NUR ---
DR PEARSON AT BEDSIDE FOR PT EVAL
[2018-10-05] MEDS ORDERED: traMADol 50 MG TAB PO ONE (17:20)
[2018-10-05 17:43] VITALS: BP 125/74
== END 2018-10-05 17:42 | disposition home or self-care (01) ==
LOC: MED 16:08
DX: M25.531 Pain in right wrist (principal); M25.532 Pain in left wrist; J45.909 Unspecified asthma, uncomplicated; I10 Essential (primary) hypertension; F12.10 Cannabis abuse, uncomplicated; Z90.49 Acquired absence of other specified parts of digestive tract; Z79.82 Long term (current) use of aspirin; Z79.899 Other long term (current) drug therapy
CPT/HCPCS: 99283

== ENCOUNTER 2018-10-25 13:40 | Emergency (ER) | payer MEDICAID ==
[~2018-10-25] VITALS: Ht 154.9 cm; Wt 56.8 kg
[2018-10-25 14:17] VITALS: BP 116/79
--- NOTE | 2018-10-25 14:40 | NUR ---
BIB SELF. AAO X4 C/O LEFT WRIST PAIN S/P FALL YESTERDAY. PT STATES THAT HE FELL AND LANDED ON BOTH HANDS, AND HIT FOREHEAD, +LOC. DENIES N/V/D; SKIN IS PINK/WARM/DRY; AAOX4 WITH EVEN AND STEADY GAIT; PT DENIES ANY FEVER, CP, SOB, OR COUGH AT THIS TIME; PATIENT STATES PAIN OF 10/10 AT THIS TIME; VSS; PATIENT POSITIONED FOR COMFORT; HOB ELEVATED; BEDRAILS UP X1; BED DOWN. ER MD MADE AWARE OF PT STATUS.
[2018-10-25] MEDS ORDERED: KETOROLAC 60 MG/2 ML VIAL IM ONE (15:10)
[2018-10-25] MEDS ORDERED: traMADol 50 MG TAB PO ONE (15:10)
[2018-10-25 16:33] VITALS: BP 124/84
== END 2018-10-25 16:33 | disposition home or self-care (01) ==
LOC: MED 13:40
DX: M19.032 Primary osteoarthritis, left wrist (principal); J45.909 Unspecified asthma, uncomplicated; Z79.82 Long term (current) use of aspirin; Z79.899 Other long term (current) drug therapy
CPT/HCPCS: 29125; 73110; 96372; 99283; J1885; Q0092

== ENCOUNTER 2019-02-02 11:25 | Emergency (ER) | payer MEDICAID ==
[~2019-02-02] VITALS: Ht 154.9 cm; Wt 63.5 kg
[2019-02-02 11:28] VITALS: BP 130/71
--- NOTE | 2019-02-02 12:04 | NUR ---
PATIENT PRESENTS TO ED WITH BILAT WRIST PAIN 10/10 X 1 DAY AFTER FALLING AND LANDING ON HIS HANDS. +SWELLING OF L WRIST, +NUMBNESS OF 1ST AND 2ND LEFT FINGERS. CR <3 SECS, PULSES 2+. PT UNABLE TO ROTATE WRIST. PT ALSO COMPLAINS OF ABD PAIN & CP AT THIS TIME. ABD SOFT, NON-TENDER, ACTIVE BS. LBM THIS AM. HR 50, REG RHYTHM. SKIN IS PINK/WARM/DRY; AAOX4 WITH EVEN AND STEADY GAIT; LUNGS CLEAR BL; PATIENT STATES PAIN OF 10/10 AT THIS TIME; VSS; PATIENT POSITIONED FOR COMFORT; HOB ELEVATED; BEDRAILS UP X2; BED DOWN. ER MD MADE AWARE OF PT STATUS. HX: ASTHMA RX: ALBUTEROL
--- NOTE | 2019-02-02 12:10 | NUR ---
XRAY AT BEDSIDE
[2019-02-02 13:28] VITALS: BP 140/65
--- NOTE | 2019-02-02 13:29 | NUR ---
Patient discharged with v/s stable. Written and verbal after care instructions given and explained. Patient alert, oriented and verbalized understanding of instructions. Ambulatory with steady gait. All questions addressed prior to discharge. ID band removed. Patient advised to follow up with PMD. Rx of TRAMDOL, MOTRIN given. Patient educated on indication of medication including possible reaction and side effects. Opportunity to ask questions provided and answered.
== END 2019-02-02 13:29 | disposition home or self-care (01) ==
LOC: MED 11:25
DX: M25.531 Pain in right wrist (principal); M25.532 Pain in left wrist; R00.1 Bradycardia, unspecified; R42 Dizziness and giddiness; J45.909 Unspecified asthma, uncomplicated; Z79.82 Long term (current) use of aspirin; Z79.899 Other long term (current) drug therapy
CPT/HCPCS: 29125; 73110; 93005; 99283; Q0092

== ENCOUNTER 2019-02-15 10:56 | Emergency (ER) | payer SELFPAY ==
[~2019-02-15] VITALS: Ht 157.5 cm; Wt 60.8 kg
[2019-02-15 11:01] VITALS: BP 134/70
--- NOTE | 2019-02-15 11:10 | NUR ---
Patient ambulated to bed 9. RN evaluating patient at bedside.
--- NOTE | 2019-02-15 11:25 | NUR ---
Dr. Villeda is evaluating the patient at bedside.
--- NOTE | 2019-02-15 11:30 | NUR ---
C/O N/V AND EPIGASTRIC PAIN 10/ X 2 DAYS. ABDOMEN SOFT AND ROUND, NON TENDER TO TOUCH. BOWEL SOUNDS ACTIVE IN ALL 4 QUADRANTS. LAST BM X 2 DAYS. PT ALSO REPORTS BLURRY VISION & DIZZINESS. NEURO INTACT- PUPILS FELIZ, GCS 15, FACIAL SYMMETRY, EQUAL ARM GROUP PRESIDENT, PT ALERT AND AWAKE, AMBULATES WITH STEADY GAIT. FSBS 106. BED IS DOWN, LOCKED, BED RAIL X 1. HX: ASTHMA RX: VENTOLIN
[2019-02-15] MEDS ORDERED: ONDANSETRON 4 MG ODT PO ONE (11:40)
--- NOTE | 2019-02-15 11:53 | NUR ---
LAB AT BEDSIDE
--- NOTE | 2019-02-15 11:59 | NUR ---
ZOFRAN ADMINISTERED PO. PT TOLERATED WELL
[2019-02-15 12:05] LABS: BASOPHILS % (AUTO) 0.6 % (0.0-2.0); EOSINOPHILS # (AUTO) 0.1 K/uL (0-0.4); EOSINOPHILS % (AUTO) 2.7 % (0.0-4.0); HEMATOCRIT 40.9 % (36-52); HEMOGLOBIN 13.7 g/dL (12.0-18.0); LYMPHOCYTES # (AUTO) 1.7 K/uL (2.0-11.5); LYMPHOCYTES % (AUTO) 52.9 % (20.5-51.1); MEAN CORPUSCULAR HEMOGLOBIN 34 pg (27-31); MEAN CORPUSCULAR HGB CONC 34 g/dL (33-37); MEAN CORPUSCULAR VOLUME 102.4 fL (80-94); MONOCYTES # (AUTO) 0.3 K/uL (0.8-1.0); MONOCYTES % (AUTO) 9.4 % (1.7-9.3); NEUTROPHILS # (AUTO) 1.1 K/uL (1.8-7.7); NEUTROPHILS % (AUTO) 34.4 % (42.2-75.2); PLATELET COUNT (AUTO) 199 K/uL (140-450); RED BLOOD CELL COUNT(AUTO) 3.99 MIL/uL (4.20-6.10); WHITE BLOOD COUNT (AUTO) 3.3 K/uL (4.8-10.8)
--- NOTE | 2019-02-15 12:05 | NUR ---
PT GOING TO CT VIA WHEELCHAIR
--- NOTE | 2019-02-15 12:13 | NUR ---
PT RETURNED FROM XRAY VIA WHEELCHAIR
[2019-02-15 12:26] LABS: APPEARANCE,URINE CLEAR (CLEAR); BILIRUBIN,URINE 1+ (NEGATIVE); BLOOD, URINE 2+ (NEGATIVE); COLOR,URINE DARK YELLOW (YELLOW); LEUKOCYTE ESTERASE ,URINE NEGATIVE (NEGATIVE); NITRITE, URINE NEGATIVE (NEGATIVE); PH,URINE 5.5 (5.0-9.0); UGLUCOSE NEGATIVE (NEGATIVE)
[2019-02-15 12:27] LABS: ANION GAP 13.6 (8-16); POTASSIUM 3.6 mmol/L (3.5-5.1)
[2019-02-15 12:33] LABS: ALBUMIN 4.1 g/dL (3.4-5.0); TOTAL BILIRUBIN 2.9 mg/dL (0.0-1.0)
--- NOTE | 2019-02-15 12:43 | NUR ---
VS STABLE AT THIS TIME. PT ALERT AND AWAKE. POSITIONED IN BED FOR COMFORT. STATES 7/10 PAIN WITH DECREASED NAUSEA AFTER ZOFRAN WAS ADMINISTERED.
[2019-02-15 12:53] LABS: WBC,URINE 0-5 /HPF (0-5)
[2019-02-15 13:58] VITALS: BP 115/68
--- NOTE | 2019-02-15 13:58 | NUR ---
Patient discharged with v/s stable. Written and verbal after care instructions given and explained. Patient alert, oriented and verbalized understanding of instructions. Ambulatory with steady gait. All questions addressed prior to discharge. ID band removed. Patient advised to follow up with PMD. Rx of IBUPROFEN, TYLENOL AND ZOFRAN given. Patient educated on indication of medication including possible reaction and side effects. Opportunity to ask questions provided and answered. PT REQUESTING ANTI-DIARRHEA MEDICATION, INFORMED DR DUTTON. INSTRUCTED PT THAT DIARRHEA IS BODY'S METHOD FOR REMOVING "STOMACH BUG"
== END 2019-02-15 13:58 | disposition home or self-care (01) ==
LOC: MED 10:56
DX: R11.2 Nausea with vomiting, unspecified (principal); R19.7 Diarrhea, unspecified; J45.909 Unspecified asthma, uncomplicated; Z98.890 Other specified postprocedural states; Z79.899 Other long term (current) drug therapy; Z79.82 Long term (current) use of aspirin
CPT/HCPCS: 36415; 74176; 80053; 81001; 85025; 99284; Q0162

== ENCOUNTER 2019-04-22 13:37 | Emergency (ER) | payer MEDICAID ==
[~2019-04-22] VITALS: Ht 157.5 cm; Wt 63.0 kg
[2019-04-22 13:52] VITALS: BP 133/57
--- NOTE | 2019-04-22 13:54 | NUR ---
PT TO ER LOBBY WITH VS STABLE
--- NOTE | 2019-04-22 15:06 | NUR ---
C/O BILATERAL HAND PAIN POST FALL YESTERDAY. STATES PAIN TO LEFT MEDIAL WRIST WITH SWELLING AND NUMBNESS. PAIN TO RIGHT LATERAL HAND WITH NUMBNESS. RADIAL PULSES 2+ BILATERALLY. CAP REFILL 3 SECS TO BOTH HANDS. SKIN INTACT. DENIES LOC. PMH- ASTHMA
--- NOTE | 2019-04-22 15:40 | NUR ---
PA BRADLEY EVALUATING PT ATTHIS TIME.
[2019-04-22] MEDS ORDERED: KETOROLAC 60 MG/2 ML VIAL IM ONE (15:50)
--- NOTE | 2019-04-22 16:30 | NUR ---
PT PLACED IN 3" FABERCATED FIBERGLASS THUMB SPICA SPLINT ON LEFT WRIST AND WRAPPED WITH 3" KIRILL WRAP, PT CMS WNL BEFORE AND AFTER, PT RIGHT WRIST ALSO WRAPPED WITH 3" KIRILL WRAP, CMS WNL BEFORE AND AFTER WELL. PA NOTIFIED
--- NOTE | 2019-04-22 16:45 | NUR ---
Patient discharged with v/s stable. Written and verbal after care instructions given and explained. Patient alert, oriented and verbalized understanding of instructions. Ambulatory with steady gait. All questions addressed prior to discharge. ID band removed. Patient advised to follow up with PMD. Rx of TYLENOL WITH CODEINE AND IBUPROFEN given. Patient educated on indication of medication including possible reaction and side effects. Opportunity to ask questions provided and answered.
== END 2019-04-22 16:45 | disposition home or self-care (01) ==
LOC: MED 13:37
DX: S62.101A Fracture of unspecified carpal bone, right wrist, initial encounter for closed fracture (principal); S66.912A Strain of unspecified muscle, fascia and tendon at wrist and hand level, left hand, initial encounter; J45.909 Unspecified asthma, uncomplicated; Z79.899 Other long term (current) drug therapy; Z79.82 Long term (current) use of aspirin; W18.30XA Fall on same level, unspecified, initial encounter; Y93.89 Activity, other specified; Y92.89 Other specified places as the place of occurrence of the external cause; Y99.8 Other external cause status
CPT/HCPCS: 29125; 73110; 96372; 99283; J1885

== ENCOUNTER 2019-05-11 09:59 | Emergency (ER) | payer MEDICAID, OTHER ==
[~2019-05-11] VITALS: Ht 154.9 cm; Wt 64.9 kg
[2019-05-11 10:03] VITALS: BP 134/77
--- NOTE | 2019-05-11 10:10 | NUR ---
63/M BIB SELF C/O R HAND & L WRIST PAIN S/P FALL X YESTERDAY. DENIES LOC. MED HX:ASTHMA. PATIENT STATES PAIN OF 10/10 AT THIS TIME. PATIENT POSITIONED FOR COMFORT; HOB ELEVATED; BEDRAILS UP X1; BED DOWN. ER MD MADE AWARE OF PT STATUS.
--- NOTE | 2019-05-11 10:13 | NUR ---
X RAY AT BEDSIDE.
[2019-05-11 11:16] VITALS: BP 126/89
--- NOTE | 2019-05-11 11:16 | NUR ---
Patient discharged with v/s stable. Written and verbal after care instructions given and explained. Patient verbalized understanding. Ambulatory with steady gait. All questions addressed prior to discharge. Advised to follow up with PMD.
== END 2019-05-11 11:16 | disposition home or self-care (01) ==
LOC: MED 09:59
DX: M25.532 Pain in left wrist (principal); J45.909 Unspecified asthma, uncomplicated; Z86.73 Personal history of transient ischemic attack (TIA), and cerebral infarction without residual deficits; Z79.82 Long term (current) use of aspirin; Z79.899 Other long term (current) drug therapy; Z98.890 Other specified postprocedural states
CPT/HCPCS: 29125; 73110; 73130; 99283; Q0092

== ENCOUNTER 2019-05-24 08:14 | Emergency (ER) | payer OTHER ==
[~2019-05-24] VITALS: Ht 154.9 cm; Wt 63.5 kg
[2019-05-24 08:25] VITALS: BP 125/74
--- NOTE | 2019-05-24 08:29 | NUR ---
Patient ambulated to bed 8. RN evaluating patient at bedside.
--- NOTE | 2019-05-24 08:39 | NUR ---
63 Y/O MALE PRESENTS TO ER WITH C/O CHEST PAIN 10/10 BURNING, STABBING PAIN, THAT RADIATES DOWN THE LEFT ARM. SOB, DIZZINESS, NAUSEA, AND DRY COUGH THAT MAKES PAIN WORSE. R/R EVEN AND UNLABORED. PT SITTING UPRIGHT, CALM AND PLEASANT, WILL CONTINUE TO MONITOR. SIDERAIL X1 NKDA PMH: ASTHMA, STROKE, HTN, HYPERLIPIDEMIA.
--- NOTE | 2019-05-24 08:41 | NUR ---
Dr. Collins is evaluating the patient at bedside.
[2019-05-24] MEDS ORDERED: NITROGLYCERIN 0.4 MG TAB SL ONE (08:55)
[2019-05-24] MEDS ORDERED: NACL 0.9% 1,000 ML IV ONE ×2 (08:55→10:05)
--- NOTE | 2019-05-24 09:02 | NUR ---
EKG completed at bedside by EMT.
--- NOTE | 2019-05-24 09:17 | NUR ---
PT STATES DECREASE IN CHEST PAIN AFTER NITRO, 6/10 AT THIS TIME. BP 117/72
[2019-05-24 09:25] LABS: ANION GAP 9.7 (8-16); CARBON DIOXIDE 28.9 mmol/L (21-32); CREATININE 0.9 mg/dL (0.6-1.3); POTASSIUM 4.6 mmol/L (3.5-5.1)
[2019-05-24 09:32] LABS: BASOPHILS % (AUTO) 0.5 % (0.0-2.0); EOSINOPHILS # (AUTO) 0.2 K/uL (0-0.4); EOSINOPHILS % (AUTO) 6.5 % (0.0-4.0); HEMATOCRIT 39.6 % (36-52); HEMOGLOBIN 13.4 g/dL (12.0-18.0); LYMPHOCYTES # (AUTO) 1.1 K/uL (2.0-11.5); LYMPHOCYTES % (AUTO) 40.1 % (20.5-51.1); MEAN CORPUSCULAR HEMOGLOBIN 34 pg (27-31); MEAN CORPUSCULAR HGB CONC 34 g/dL (33-37); MEAN CORPUSCULAR VOLUME 100.7 fL (80-94); MONOCYTES # (AUTO) 0.3 K/uL (0.8-1.0); MONOCYTES % (AUTO) 9.3 % (1.7-9.3); NEUTROPHILS # (AUTO) 1.2 K/uL (1.8-7.7); NEUTROPHILS % (AUTO) 43.6 % (42.2-75.2); PLATELET COUNT (AUTO) 194 K/uL (140-450); RED BLOOD CELL COUNT(AUTO) 3.93 MIL/uL (4.20-6.10); RED CELL DISTRIBUTION WIDTH 12.7 % (11.6-13.7); WHITE BLOOD COUNT (AUTO) 2.7 K/uL (4.8-10.8)
--- NOTE | 2019-05-24 09:53 | NUR ---
2ND NITRO GIVEN TO PT SUBLINGUAL PER MD
[2019-05-24] MEDS ORDERED: fentaNYL 0.05 MG/ML VIAL IVP ONE (09:55)
--- NOTE | 2019-05-24 10:01 | NUR ---
Dr. Collins is re-evaluating the patient at bedside.
--- NOTE | 2019-05-24 10:43 | NUR ---
PT REQUESTING QUIETLY, STATES PAIN IS AT 0/10. SIDERAIL X2 WILL CONTINUE TO MONITOR.
[2019-05-24] MEDS ORDERED: HEPARIN PER PHARMACY MC PRN (10:55)
[2019-05-24] MEDS ORDERED: hePARIN / DEXT 5% PREMIX 250 ML IV ONE (10:55)
--- NOTE | 2019-05-24 11:38 | NUR ---
REPORT CALLED TO [facility], SPOKE TO BENJA WAGNER.
--- NOTE | 2019-05-24 11:48 | NUR ---
PT ADMINISTERED 4500 UNITS OF HEPARIN BOLUS. SIDERAILS X2
[2019-05-24 11:53] VITALS: BP 125/74
--- NOTE | 2019-05-24 11:53 | NUR ---
HEPARIN/DEXTROSE 5% PREMIX, NOT ADMINISTERED TO PT. RETURNED TO [facility]. CONCEPCION TRANSPORTED PATIENT TO [facility]. MEDICATION COSIGNED BY BENJA CUTLER
--- NOTE | 2019-05-24 11:54 | NUR ---
Patient to be transferred to [facility]. Is being transferred due to HIGHER LEVEL OF CARE. Receiving facility has accepting physician and available space. ER physician has signed transfer form. Patient or responsible libertarian has agreed to transfer and signed form. Patient belongings inventoried and will be sent with patient. Copy of nursing notes, lab reports, EKG, Physicians Orders and X-rays to be sent with patient. Report called to BENJA WAGNER at receiving facility. [facility] ambulance service has been called for transfer. ETA is 1210.
[2019-05-24 12:41] LABS: PROTHROMBIN TIME 9.3 secs (10.8-13.4)
== END 2019-05-24 11:38 | disposition short-term general hospital (02) ==
LOC: MED 08:14
DX: I20.0 Unstable angina (principal); I21.4 Non-ST elevation (NSTEMI) myocardial infarction; R05 Cough; J45.909 Unspecified asthma, uncomplicated; I10 Essential (primary) hypertension; E78.5 Hyperlipidemia, unspecified; Z79.82 Long term (current) use of aspirin; Z79.899 Other long term (current) drug therapy; Z86.73 Personal history of transient ischemic attack (TIA), and cerebral infarction without residual deficits
CPT/HCPCS: 36415; 71045; 80048; 84484; 85025; 85610; 85730; 93005; 96374; 99291; J1644; J3010; J7030; Q0092; 99285

== ENCOUNTER 2020-03-17 11:31 | Inpatient (IN) | payer OTHER, SELFPAY ==
[~2020-03-17] VITALS: Ht 170.2 cm; Wt 68.0 kg
[~2020-03-17 11:31] MED LIST changes: -PANT40EC28 PO; +PANT40EC56 PO
--- NOTE | 2020-03-17 11:33 | NUR ---
Patient BIBA ALS, transferred to bed 3. RN evaluating patient at bedside.
--- NOTE | 2020-03-17 11:34 | NUR ---
BIBA from home with COVID-19 symptoms, SOB, cough, chills, right flank pain. NKDA, PMH asthma and HTN/HLD A, A, O x 4, cooperative. In NAD, VVS, resp slightly labored, panicked Received HHN tx from paramedics, still wearing O2 @ 6-8l/min neb/aerosol mask, O2 sat 100% HOB elevated, moving all exts w/o difficulty Awaiting evaluation/exanination by MD Will continue to monitor
[2020-03-17 11:36] VITALS: BP 123/75
[2020-03-17] MEDS ORDERED: MAG SULF 2000 MG/WATER PREMIX 50 ML IV ONE (11:55)
[2020-03-17] MEDS ORDERED: methylPREDNISolone SS 125 MG/2 ML VIAL IVP ONE (11:55)
[2020-03-17] MEDS ORDERED: IPRATROPIUM 0.02% 0.5 MG/2.5 ML NEBU INH ONE (12:00)
[2020-03-17] MEDS ORDERED: ALBUTEROL 0.083% 2.5 MG/3 ML NEBU INH ONE (12:00)
--- NOTE | 2020-03-17 12:20 | NUR ---
Patient receiving HHN breathing tx by RT, tolerating well
[2020-03-17 12:27] LABS: BASOPHILS % (AUTO) 1.3 % (0.0-2.0); EOSINOPHILS % (AUTO) 0.7 % (0.0-4.0); HEMATOCRIT 41.8 % (36-52); HEMOGLOBIN 14.3 g/dL (12.0-18.0); LYMPHOCYTES # (AUTO) 0.8 K/uL (2.0-11.5); LYMPHOCYTES % (AUTO) 33.3 % (20.5-51.1); MEAN CORPUSCULAR HEMOGLOBIN 35 pg (27-31); MEAN CORPUSCULAR HGB CONC 34 g/dL (33-37); MEAN CORPUSCULAR VOLUME 101.9 fL (80-94); MONOCYTES # (AUTO) 0.3 K/uL (0.8-1.0); MONOCYTES % (AUTO) 10.5 % (1.7-9.3); NEUTROPHILS # (AUTO) 1.4 K/uL (1.8-7.7); NEUTROPHILS % (AUTO) 54.2 % (42.2-75.2); PLATELET COUNT (AUTO) 194 K/uL (140-450); WHITE BLOOD COUNT (AUTO) 2.5 K/uL (4.8-10.8)
--- NOTE | 2020-03-17 12:29 | NUR ---
Started Magnesium drip 2grams IVPB in 50cc, over 2 hours
[2020-03-17 12:52] LABS: ALBUMIN 4.5 g/dL (3.4-5.0); CARBON DIOXIDE 25.2 mmol/L (21-32); CREATININE 1.1 mg/dL (0.6-1.3); POTASSIUM 4.2 mmol/L (3.5-5.1); TOTAL BILIRUBIN 1.2 mg/dL (0.0-1.0)
--- NOTE | 2020-03-17 13:25 | NUR ---
CRITICAL TROPONIN reported by BENJA Guy. Dr. Ramsey made aware Addendum: 03/17/20 at 1754 by [email or web address] Troponin 0.398
[2020-03-17] MEDS ORDERED: AMLO5TAB PO (16:04)
[2020-03-17] MEDS ORDERED: ALBU0.0912 IH (16:04)
[2020-03-17] MEDS ORDERED: ASPIRIN 81 MG TAB.CHEW PO ONE (16:25)
[2020-03-17] MEDS ORDERED: ASPIRIN 81 MG TAB.CHEW ONE (17:46)
--- NOTE | 2020-03-17 17:50 | NUR ---
Troponin 0.368--critical value received from lab. Dr Santos made aware.
--- NOTE | 2020-03-17 17:55 | NUR ---
Dr. Santos is evaluating the patient at bedside.
--- NOTE | 2020-03-17 18:22 | NUR ---
Patient swabbed for COVID-19 HILL rapid, collected and walked to lab receiving
--- NOTE | 2020-03-17 19:12 | NUR ---
Detailed report given to BENJA Curry for night coordinator, questions answered, orders and meds reviewed
[2020-03-17] MEDS ORDERED: KCL 20 MEQ/WATER INJ PREMIX 200 ML IV PRN (19:25)
[2020-03-17] MEDS ORDERED: POTASSIUM CHLORIDE 10 MEQ TABER PO PRN (19:25)
[2020-03-17] MEDS ORDERED: ZOLPIDEM 5 MG TAB PO PRN (19:25)
[2020-03-17] MEDS ORDERED: HYDROcodone/APAP 5/325 MG 1 TAB TAB PO PRN (19:25)
[2020-03-17] MEDS ORDERED: ACETAMINOPHEN 325 MG TAB PO PRN (19:25)
[2020-03-17] MEDS ORDERED: ONDANSETRON 4 MG/2 ML VIAL IVP PRN (19:25)
[2020-03-17] MEDS ORDERED: MAG SULF 2000 MG/WATER PREMIX 50 ML IV PRN (19:25)
[2020-03-17] MEDS ORDERED: MAGNESIUM OXIDE 400 MG TAB PO PRN (19:25)
[2020-03-17] MEDS ORDERED: NITROGLYCERIN 0.4 MG TAB SL PRN (19:30)
[2020-03-17] MEDS ORDERED: MORPHINE SULFATE 2 MG/ML SYR IVP PRN (19:30)
--- NOTE | 2020-03-17 19:44 | NUR ---
LAB REPORTED PT + FOR COVID.
--- NOTE | 2020-03-17 20:00 | NUR ---
Patient appears to be resting comfortably in bed. Vital Signs within normal limits. Respirations even and unlabored.
--- NOTE | 2020-03-18 00:01 | NUR ---
RESTING IN BED WITH EYES CLOSED. RESPIRATIONS REGULAR AND UNLABORED
[2020-03-18] MEDS ORDERED: ALBUTEROL SULFATE/IPRATROPIU 3 ML SOL IH SCH (01:00)
--- NOTE | 2020-03-18 04:00 | NUR ---
AWAKE HAS VOIDED LARGE AMOUNT PER URINAL
[2020-03-18 07:57] LABS: BASOPHILS % (AUTO) 0.7 % (0.0-2.0); HEMATOCRIT 44.1 % (36-52); HEMOGLOBIN 14.8 g/dL (12.0-18.0); LYMPHOCYTES # (AUTO) 0.8 K/uL (2.0-11.5); LYMPHOCYTES % (AUTO) 33.5 % (20.5-51.1); MEAN CORPUSCULAR HEMOGLOBIN 35 pg (27-31); MEAN CORPUSCULAR HGB CONC 34 g/dL (33-37); MEAN CORPUSCULAR VOLUME 103.1 fL (80-94); MONOCYTES # (AUTO) 0.3 K/uL (0.8-1.0); MONOCYTES % (AUTO) 12.5 % (1.7-9.3); NEUTROPHILS # (AUTO) 1.3 K/uL (1.8-7.7); NEUTROPHILS % (AUTO) 53.3 % (42.2-75.2); PLATELET COUNT (AUTO) 193 K/uL (140-450); RED BLOOD CELL COUNT(AUTO) 4.27 MIL/uL (4.20-6.10); RED CELL DISTRIBUTION WIDTH 13.2 % (11.6-13.7); WHITE BLOOD COUNT (AUTO) 2.4 K/uL (4.8-10.8)
--- NOTE | 2020-03-18 08:03 | NUR ---
Vishal cuevas in EDM - 03/18/20 at 0803 by [email or web address] [id number]. C/O MID ABD PAIN11/14. FATOU NUNEZ AT THIS TIME.
--- NOTE | 2020-03-18 08:03 | NUR ---
AAOX4. C/O MID ABD PAIN8/10. DENIES CP AT THIS TIME.
--- NOTE | 2020-03-18 08:03 | NUR ---
QQOX4. C/O MID ABD PAIN8/10. DENIES CP AT THIS TIME.
[2020-03-18 08:17] LABS: ALBUMIN 4.3 g/dL (3.4-5.0); ANION GAP 12.1 (8-16); CARBON DIOXIDE 27.4 mmol/L (21-32); CREATININE 0.8 mg/dL (0.6-1.3); POTASSIUM 5.5 mmol/L (3.5-5.1); TOTAL BILIRUBIN 1.5 mg/dL (0.0-1.0)
[2020-03-18 08:31] LABS: CHOL/HDL RATIO 2.5 (1-4.5); MAGNESIUM 2.3 mg/dL (1.8-2.4); PHOSPHORUS 2.8 mg/dL (2.5-4.9)
[2020-03-18] MEDS ORDERED: ENOXAPARIN 40 MG/0.4 ML SYR SUBQ SCH (09:00)
[2020-03-18] MEDS ORDERED: DOCUSATE SODIUM 100 MG GELCAP PO SCH (09:00)
--- NOTE | 2020-03-18 13:12 | NUR ---
[facility], COVID SWAB COLLECTED. SEND TO LAB.
--- NOTE | 2020-03-18 14:00 | NUR ---
ATE LUNCH 100%. DENIES N/V.
[2020-03-18] MEDS ORDERED: APIX2.5 PO (14:16)
[2020-03-18] MEDS ORDERED: DEXA4TAB5 PO (14:16)
[2020-03-18] MEDS ORDERED: NITR0.4T2 SL (14:17)
[2020-03-18 14:36] VITALS: BP 126/69
--- NOTE | 2020-03-21 15:17 | NUR ---
LATE ENTRY -- END TIME OF MAGNESIUM IS 1429 03/17/2020.
== END 2020-03-18 14:36 | disposition home or self-care (01) | DRG 177 ==
LOC: MED 11:31 → MTU 19:22
PROVIDERS: ADMIT Hospitalist; ATTEND Hospitalist
DX: U07.1 COVID-19 (principal); I21.A1 Myocardial infarction type 2; J45.901 Unspecified asthma with (acute) exacerbation; I42.9 Cardiomyopathy, unspecified; K21.9 Gastro-esophageal reflux disease without esophagitis; E78.5 Hyperlipidemia, unspecified; I11.9 Hypertensive heart disease without heart failure; Z86.73 Personal history of transient ischemic attack (TIA), and cerebral infarction without residual deficits; Z79.82 Long term (current) use of aspirin; Z79.899 Other long term (current) drug therapy
CPT/HCPCS: 36415; 71045; 80053; 83036; 83605; 83735; 83880; 84100; 84484; 85025; 87081; 93005; 94640; 96365; 96375; 99285; J1650; J2930; J3475; J7613; J7644; U0003

== ENCOUNTER 2020-07-28 12:13 | Emergency (ER) | payer OTHER ==
[~2020-07-28] VITALS: Ht 157.5 cm; Wt 69.5 kg
[~2020-07-28 12:13] MED LIST changes: +ALBU0.0912 IH; +AMLO5TAB PO; +APIX2.5 PO; -ASPI81CT95 PO; -ATOR20TA40 PO; +DEXA4TAB5 PO; -LISI-424 PO; +NITR0.4T2 SL; -PANT40EC56 PO
[2020-07-28 12:21] VITALS: BP 133/65
--- NOTE | 2020-07-28 12:33 | NUR ---
covering primary RN for lunch relief -- received a 64M from triage for a c/o left knee pain. pt denies recent fall/injury. pt reports that he was walking and heard a "pop". no obvious deformity noted. no swelling noted. ambulatory from triage. pt in bed pending MSE.
[2020-07-28] MEDS ORDERED: KETOROLAC 30 MG/ML VIAL IM ONE (12:45)
--- NOTE | 2020-07-28 12:50 | NUR ---
Patient ambulated to restroom
--- NOTE | 2020-07-28 12:54 | NUR ---
X-ray at bedside, transported patient to [facility] via wheelchair.
--- NOTE | 2020-07-28 13:10 | NUR ---
Patient returned from X-ray via wheelchair and back onto bed. Alden provided per pt request.
--- NOTE | 2020-07-28 13:15 | NUR ---
Patient states positive relief after Toradol IM. Rates pain 7/10; denies any nausea. Pt provided with jello and apple sauce per request.
--- NOTE | 2020-07-28 13:25 | NUR ---
Dr. Collins is reevaluating patient at bedside.
--- NOTE | 2020-07-28 13:29 | NUR ---
EMT at bedside for crutch application
[2020-07-28] MEDS ORDERED: ACET-2619 PO (13:32)
--- NOTE | 2020-07-28 13:44 | NUR ---
PT WAS INSTRUCTED HOW TO USE CRUTCHES AND DEMONSTRATE PROPER USE. PT STATED THEY HAD PREVIOUSLY USED CRUTCHES BEFORE.
[2020-07-28 13:50] VITALS: BP 133/65
== END 2020-07-28 13:50 | disposition home or self-care (01) ==
LOC: MED 12:13
DX: M76.50 Patellar tendinitis, unspecified knee (principal); J45.909 Unspecified asthma, uncomplicated; I51.9 Heart disease, unspecified; Z79.899 Other long term (current) drug therapy
CPT/HCPCS: 73562; 96372; 99283; J1885

== ENCOUNTER 2020-10-17 07:36 | Emergency (ER) | payer OTHER ==
[~2020-10-17] VITALS: Ht 154.9 cm; Wt 68.0 kg
[~2020-10-17 07:36] MED LIST changes: +ACET-2619 PO
[2020-10-17 07:39] VITALS: BP 141/61
--- NOTE | 2020-10-17 07:59 | NUR ---
DR WU AT BEDSIDE EVALUATING PT
[2020-10-17] MEDS ORDERED: KETOROLAC 15 MG/ML VIAL IM ONE (08:00)
--- NOTE | 2020-10-17 08:07 | NUR ---
Patient taken to x-ray via wheelchair by tech.
--- NOTE | 2020-10-17 08:07 | NUR ---
65/M presents to ED with c/o right knee pain and left wrist pain. Patient states he was "cleaning up after his grandchild" and tripped and fell hitting his right knee and left wrist. Patient states since his fall has had 10/10 sharp constant pain with no relief, denies taking anything at home for pain. Patient able to ambulate without assistance, moving all extremities appropriately.
--- NOTE | 2020-10-17 08:21 | NUR ---
Patient returned from x-ray. RN reevaluating the patient at bedside.
[2020-10-17] MEDS ORDERED: ACET-10509 PO (09:48)
--- NOTE | 2020-10-17 10:00 | NUR ---
pt placed in left velcro wrist splint cms wnl before and after
[2020-10-17 10:06] VITALS: BP 141/61
--- NOTE | 2020-10-17 10:06 | NUR ---
Patient discharged with v/s stable. Written and verbal after care instructions ABOUT MEDICATION, WRIST SPRAIN AND CONTUSION given and explained. Patient alert, oriented and verbalized understanding of instructions. Carried with steady gait. All questions addressed prior to discharge. ID band removed. Patient advised to follow up with PMD. Rx of ACETAMINOPHEN TAB given. Patient educated on indication of medication including possible reaction and side effects. Opportunity to ask questions provided and answered.
== END 2020-10-17 10:06 | disposition home or self-care (01) ==
LOC: MED 07:36
DX: S80.01XA Contusion of right knee, initial encounter (principal); S63.502A Unspecified sprain of left wrist, initial encounter; J45.909 Unspecified asthma, uncomplicated; Z98.890 Other specified postprocedural states; Z79.899 Other long term (current) drug therapy; W18.40XA Slipping, tripping and stumbling without falling, unspecified, initial encounter; Y93.89 Activity, other specified; Y92.59 Other trade areas as the place of occurrence of the external cause; Y99.8 Other external cause status
CPT/HCPCS: 29125; 73110; 73562; 96372; 99284; J1885